=== PATIENT | female | born 1935 | race Caucasian/White ===

== ENCOUNTER 2017-01-03 10:51 | Emergency (ER) | payer OTHER ==
[2017-01-03 11:01] VITALS: RESP 18
--- NOTE | 2017-01-03 11:11 | EDPHY ---
HPI/HX/ROS/PE/MDM - Data Points Imaging: Discussed imaging studies w/ inbound call center representative Radiologist, I viewed and interpreted images myself <Vladimir Butler A - Last Filed: 01/03/17 16:43> <Shahzad Vincent - Last Filed: 01/06/17 06:55> Narrative: CHIEF COMPLAINT: Numbness in her left leg HPI: The patient is a 81 y/o female complaining of numbness in her left leg. She felt normal when she woke up this morning but around 9:15 AM, 2 hours ago, she began experiencing numbness in her left leg. The numbness makes walking difficult. She initially thought it was just "asleep" but the feeling did not dissipate. The numbness in on the lateral aspect of the left leg and foot. The medial aspect of her calf and foot are normal. She has associated back pain and left buttock pain which has been on and off. She denies visual changes, headache , numbness in her arms or face, or any other associated symptoms. REVIEW OF SYSTEMS: Aside from elements discussed in the HPI, a comprehensive 10-point review of systems was reviewed and is negative. PMH: TIA from statins 1 year ago, cardiac stents SOCIAL HISTORY: Lives in [place], mother, employed PHYSICAL EXAM: General:Patient is alert, in no acute distress. ENT:Eyes are normal to inspection. ENT inspection normal. Neck: Normal inspection. Full range of motion. Respiratory:No respiratory distress. Breath sounds normal bilaterally. Cardiovascular: Regular rate and rhythm. Strong peripheral pulses. Normal cap refill. Abdomen:The abdomen is nontender to palpation. There are no peritoneal signs. There are normal bowel sounds. Back: Normal to inspection. No tenderness to palpation. Pt points to area near sciatic notch of left buttock as site of pain. Skin: Normal color. No rash. Warm and dry. Extremities: Normal appearance. Full range of motion. Neuro: Oriented x3. Normal motor function. Normal sensory function. LLE:5/5 strength DF/PF, knee flexion and extension. Abnormal gait - unclear if secondary to pain or weakness. No truncal ataxia noted. (Shahzad Vincent) ED Course: MRI Lumbar Spine: Multilevel degenerative disk disease with severe central canal stenosis at L1-L2, L2-L3 and L3-L4 is described above, worst on the right at L1-L2. MRI Brain: negative. Discussed results and follow up recommendations with the patient. She would prefer to follow up with neurosurgery as an outpatient. She will be discharged with scripts for Boston and Medrol with referral to [facility]. Return precautions discussed. She is comfortable with this plan. 1642: Consulted with [facility] physician. They will call her and arrange follow up. (Vladimir Butler) Study: CT of the head Indication: Left leg numbness Results: CT scan of the head was obtained. The results of the study are: Negative The study was read by the radiologist, Dr. Silver. I viewed the images myself on the PACS system. I had an extensive discussion with patient and her partner regarding possible workup - they are comfortable with plan of MRI brain and L-spine. I have signed the patient out to Dr. Butler at 2:45pm pending results of these studies. I think CVA is unlikely given isolated foot and lower leg symptoms and likelihood of peripheral nerve issue. If CVA, patient would not be a candidate for tPA given improvement in symptoms while in ED. (Shahzad Vincent) MDM: This patient presents with left lower leg weakness, numbness and abnormal gait. This seems most consistent with sciatica or other nerve compression issue given isolation to leg, but given patient's history of TIA and acute onset symptoms, I think CVA in differential, which prompted CTH and MRI. (Shahzad Vincent) - Data Points Imaging Results: Imaging Impressions Head CT 01/03/17 11:20 Impression: Negative. No acute intracranial hemorrhage or evidence of ischemia. Findings discussed with Emergency Department physician, Shahzad Vincent MD, on 01/03/2017, 11:50. Brain MRI 01/03/17 12:22 Impression:Normal for age. Lumbar Spine MRI 01/03/17 12:22 Impression: 1. Large left upper renal cystic lesion. Correlation with ultrasound is recommended since the entirety of this lesion is not included on this study. 2. Multilevel degenerative disk disease with severe central canal stenosis at L1 -L2, L2-L3 and L3-L4 is described above, worst on the right at L1-L2. Results called and discussed with Vladimir Butler MD, at 01/03/2017 16:02 Laboratory Results: Laboratory Results 01/03/17 11:25 01/03/17 11:25 01/03/17 01/03/17 11:25 11:25 WBC 6.42 10^3/uL 10^3/uL (3.80-9.50) RBC 4.87 10^6/uL 10^6/uL (4.18-5.33) Hgb 15.7 g/dL g/dL (12.6-16.3) Hct 44.5 % % (38.0-47.0) MCV 91.4 fL fL (81.5-99.8) MCH 32.2 pg pg (27.9-34.1) MCHC 35.3 g/dL g/dL (32.4-36.7) RDW 14.2 % % (11.5-15.2) Plt Count 165 10^3/uL 10^3/uL (150-400) MPV 9.6 fL fL (8.7-11.7) Neut % (Auto) 52.5 % % (39.3-74.2) Lymph % (Auto) 34.6 % % (15.0-45.0) Stokes % (Auto) 8.1 % % (4.5-13.0) Eos % (Auto) 3.7 % % (0.6-7.6) Baso % (Auto) 0.9 % % (0.3-1.7) Nucleat RBC Rel Count 0.0 % % (0.0-0.2) Absolute Neuts (auto) 3.37 10^3/uL 10^3/uL (1.70-6.50) Absolute Lymphs (auto) 2.22 10^3/uL 10^3/uL (1.00-3.00) Absolute Monos (auto) 0.52 10^3/uL 10^3/uL (0.30-0.80) Absolute Eos (auto) 0.24 10^3/uL 10^3/uL (0.03-0.40) Absolute Basos (auto) 0.06 10^3/uL 10^3/uL (0.02-0.10) Absolute Nucleated RBC 0.00 10^3/uL 10^3/uL (0-0.01) Immature Gran % 0.2 % % (0.0-1.1) Immature Gran # 0.01 10^3/uL 10^3/uL (0.00-0.10) Sodium 139 mEq/L mEq/L (134-144) Potassium 3.9 mEq/L mEq/L (3.5-5.2) Chloride 109 mEq/L mEq/L (97-110) Carbon Dioxide 18 mEq/l L mEq/l (22-31) Anion Gap 12 mEq/L mEq/L (8-16) BUN 17 mg/dL mg/dL (7-23) Creatinine 0.7 mg/dL mg/dL (0.6-1.0) Estimated GFR > 60 Glucose 87 mg/dL mg/dL (70-100) Calcium 9.7 mg/dL mg/dL (8.5-10.4) General <Vladimir Butler - Last Filed: 01/03/17 16:43> <Shahzad Vincent - Last Filed: 01/06/17 06:55> Time Seen by Provider: 01/03/17 11:10 Initial Vital Signs: Initial Vital Signs Temperature (C) 36.6 C 01/03/17 10:55 Heart Rate 87 01/03/17 10:55 Respiratory Rate 18 01/03/17 10:55 Blood Pressure 155/76 H 01/03/17 10:55 O2 Sat (%) 96 01/03/17 10:55 O2 Delivery Mode Room Air Allergies/Adverse Reactions: [id number] Reductase Inhibitor Allergy (Verified 01/04/17 16:11) Loss of consciousness Home Medications: Medication Instructions Recorded Levothyroxine [Synthroid 150 mcg 150 mcg PO DAILY06 03/24/15 (*)] Lisinopril/Hctz 20/12.5MG 1 ea PO DAILY 03/24/15 [Zestoretic/Prinzide 20/12.5MG (*)] Metoprolol Tartrate [Lopressor 25 12.5 mg PO BID 03/24/15 mg (*)] Hydrocodone/APAP 5/325 [[place] 1 - 2 each PO Q4-6PRN PRN #20 tab 01/03/17 5/325] methylPREDNISolone [Medrol Dose 1 each PO AD #1 ea 01/03/17 El] Dry Relief Eye Drops 1 drop EACHEYE DAILY PRN 01/04/17 Departure <Vladimir Butler - Last Filed: 01/03/17 16:43> <Shahzad Vincent - Last Filed: 01/06/17 06:55> - Departure Disposition: Home, Routine, Self-Care Clinical Impression: Degenerative disc disease, lumbar, Central stenosis of spinal canal Condition: Good Instructions: Degenerative Disc Disease (ED) Additional Instructions: 1. Follow up with [facility]surgery as soon as possible. I recommend calling first thing tomorrow morning to make an appointment. Bring discs of your MRIs with you to that visit. 2. Use ibuprofen as directed on the packaging as needed for pain and inflammation. 3. Take Boston as prescribed when needed for severe pain. This medication contains Tylenol (acetaminophen), so you should not use additional Tylenol while using it. This medication can make you drowsy. Do not drive while using it. 4. Take Medrol dose pack as prescribed. 5. Return to the ED for leg weakness, incontinence, numbness around your genitals, or other worsening of condition. Referrals: [facility] [Other] - As per Instructions [facility] [Provider Group] - As per Instructions Prescriptions: Hydrocodone/APAP 5/325 [[place] 5/325] 1 - 2 each PO Q4-6PRN PRN #20 tab PRN Reason: Pain, Moderate methylPREDNISolone [Medrol Dose El] 1 each PO AD #1 ea Report Scribed for: Shahzad Vincent Report Scribed by: Leticia Thomson Date of Report: 01/03/17 Time of Report: 11:11 Physician Review and Approval Statement: Portions of this note were transcribed by an ED scribe. I personally performed the history, physical exam, and medical decision making; and confirm the accuracy of the information in the transcribed note. <Shahzad Vincent - Last Filed: 01/06/17 06:55>
[2017-01-03 11:33] LABS: % IMMATURE GRANULYOCYTES 0.2 % (0.0-1.1); ABSOLUTE IMMATURE GRANULOCYTES 0.01 10^3/uL (0.00-0.10); ADD DIFF? NO; ADD MORPH? NO; ADD SCAN? NO; ATYPICAL LYMPHOCYTE FLAG 0 (0-99); FRAGMENT RBC FLAG 0 (0-99); HEMATOCRIT 44.5 % (38.0-47.0); HEMOGLOBIN 15.7 g/dL (12.6-16.3); LEFT SHIFT FLG 0 (0-99); LIPEMIA HEMOLYSIS FLAG 90 (0-99); MEAN CELL HEMOGLOBIN 32.2 pg (27.9-34.1); MEAN CELL HEMOGLOBIN CONCENTR. 35.3 g/dL (32.4-36.7); MEAN CELL VOLUME 91.4 fL (81.5-99.8); MEAN PLATELET VOLUME 9.6 fL (8.7-11.7); PLATELET CLUMPS FLAG 20 (0-99); PLATELET COUNT 165 10^3/uL (150-400); RED BLOOD CELL COUNT 4.87 10^6/uL (4.18-5.33); RED CELL DISTRIBUTION WIDTH 14.2 % (11.5-15.2)
[2017-01-03 11:57] LABS: ANION GAP 12 mEq/L (8-16); CALCIUM 9.7 mg/dL (8.5-10.4); CARBON DIOXIDE 18 mEq/l (22-31); CHLORIDE 109 mEq/L (97-110); CREATININE 0.7 mg/dL (0.6-1.0); GLOMERULAR FILTRATION RATE > 60; GLUCOSE 87 mg/dL (70-100); POTASSIUM 3.9 mEq/L (3.5-5.2); SODIUM 139 mEq/L (134-144)
[2017-01-03 15:53] VITALS: BP 179/85; PULSE 51; TEMP 98.4; O2SAT 93
== END 2017-01-03 17:14 | disposition home or self-care (01) ==
DX: M51.36 Other intervertebral disc degeneration, lumbar region (principal); M48.061 Spinal stenosis, lumbar region without neurogenic claudication; Z86.73 Personal history of transient ischemic attack (TIA), and cerebral infarction without residual deficits

== ENCOUNTER 2017-01-04 06:26 | Inpatient (IN) | payer OTHER ==
--- NOTE | 2017-01-04 06:53 | EDPHY ---
H & P Time Seen by Provider: 01/04/17 06:36 HPI/ROS: CHIEF COMPLAINT: Left leg numbness HISTORY OF PRESENT ILLNESS: Patient was here in our emergency department yesterday with left hip discomfort and left foot numbness. She had negative MRI of her brain and MRI of her lumbar spine which showed multilevel severe central canal stenosis. She was discharged on Medrol Dosepak. She returns because at 1:11 a.m. and again at 3:00 a.m. she had urinary incontinence. Yesterday the numbness spread from her left foot all the way up into her left thigh and then this morning after her 2nd episode of incontinence she noticed she also had numbness in her left groin and her vaginal area. Patient feels subjectively weak but is still able to walk with a cane. She denies other neurologic symptoms. Her symptoms of numbness are moderate currently. Timing as above. Not better or worse with anything. REVIEW OF SYSTEMS: Eye: no change in vision ENT: no sore throat Cardiac: no chest pain or syncope Pulmonary: no cough or SOB Abdomen: no vomiting, diarrhea, abdominal pain Musculoskeletal: HPI Skin: no rash Neuro: HPI Constitutional: no fever : No dysuria, as above A comprehensive 10 point review of systems is otherwise negative aside from elements mentioned in the history of present illness. PAST MEDICAL HISTORY: Coronary disease with stenting x2 Social history: Here with her partner, Jt patient General Appearance: Alert and conversant, cooperative. Eyes: No scleral icterus. ENT, Mouth: Normal mucous membranes. Respiratory: Normal respiratory effort, breath sounds equal, lungs are clear to auscultation. Cardiovascular: Regular rate and rhythm. Gastrointestinal: Abdomen is soft and non tender. Neurological: Alert and oriented x3. Normally conversant. Patient has slight weakness of left great toe extension, patellar reflexes 2+ symmetric. She has subjective decreased sensation on the outside of her left foot and the outside of her left thigh. Normal strength and knee flexion extension and hip flexion extension. Normal plantar flexion of the foot. Toes downgoing bilaterally. Skin: Warm and dry, no rashes. Musculoskeletal: No spinal tenderness. Psychiatric: Not agitated. Emergency Department course/MDM: message for Jt CRAWFORD at 0650. Concern exists for spinal nerve root compression or cauda equina syndrome, plan for neurosurgical consultation. Discussed with YVETTE Ross with tJ [id number], ok to see [facility] neurosurgery, no transfer. 701am discussed with Dr. Finnegan neurosurgery to see in ED. 804: Admit Neurosurgery per BUS STARTER Sheila. Smoking Status: Never smoked Constitutional: Initial Vital Signs Temperature (C) 37.0 C 01/04/17 06:29 Heart Rate 67 01/04/17 06:29 Respiratory Rate 18 01/04/17 06:29 Blood Pressure 150/79 H 01/04/17 06:29 O2 Sat (%) 96 01/04/17 06:29 O2 Delivery Mode Room Air Allergies/Adverse Reactions: No Known Allergies Allergy (Verified 01/04/17 06:34) Home Medications: Medication Instructions Recorded Levothyroxine 03/24/15 Lisinopril 03/24/15 Metoprolol Succinate 03/24/15 Hydrocodone/APAP 5/325 [[place] 1 - 2 each PO Q4-6PRN PRN #20 tab 01/03/17 5/325] methylPREDNISolone [Medrol Dose 1 each PO AD #1 ea 01/03/17 El] Medical Decision Making Differential Diagnosis: Differential considered including but not limited to lumbar radiculopathy, spinal stenosis, cauda equina syndrome, ischemic stroke, myelitis. Departure - Departure Disposition: [facility] Inpatient Acute Clinical Impression: Lumbar radiculopathy, acute Condition: Good Referrals: [facility] [Other] - As per Instructions
[2017-01-04] MEDS ORDERED: ONDANSETRON 4 MG/2 ML VIAL IVP PRN ×2 (07:53→17:51)
[2017-01-04] MEDS ORDERED: ONDANSETRON DISINTEGRATING 4 MG TAB PO PRN ×2 (07:53→15:09)
[2017-01-04] MEDS ORDERED: ceFAZolin 2 GM/SWFI 2 GM/20 ML SYR IVP ONE (07:57)
[2017-01-04] MEDS ORDERED: NS 1,000 ML IV SCH (08:00)
[2017-01-04 08:26] LABS: HEMATOCRIT 43.2 % (38.0-47.0); HEMOGLOBIN 15.3 g/dL (12.6-16.3); MEAN CELL HEMOGLOBIN 32.6 pg (27.9-34.1); MEAN CELL HEMOGLOBIN CONCENTR. 35.4 g/dL (32.4-36.7); MEAN CELL VOLUME 92.1 fL (81.5-99.8); RED BLOOD CELL COUNT 4.69 10^6/uL (4.18-5.33); RED CELL DISTRIBUTION WIDTH 14.3 % (11.5-15.2)
[2017-01-04 08:36] LABS: INR 0.99 (0.83-1.16)
[2017-01-04 08:37] LABS: APTT 25.6 SEC (23.0-38.0)
[2017-01-04 08:40] LABS: ALANINE AMINOTRANSFERASE 33 IU/L (9-52); ALBUMIN 4.2 g/dL (3.5-5.0); ALKALINE PHOSPHATASE 52 IU/L (38-126); ANION GAP 13 mEq/L (8-16); ASPARTATE AMINOTRANSFERASE 23 IU/L (14-46); BILIRUBIN,TOTAL 0.6 mg/dL (0.1-1.4); CALCIUM 9.7 mg/dL (8.5-10.4); CARBON DIOXIDE 23 mEq/l (22-31); CHLORIDE 108 mEq/L (97-110); CREATININE 0.8 mg/dL (0.6-1.0); GLOMERULAR FILTRATION RATE > 60; GLUCOSE 97 mg/dL (70-100); POTASSIUM 4.1 mEq/L (3.5-5.2); SODIUM 144 mEq/L (134-144); TOTAL PROTEIN 6.8 g/dL (6.3-8.2)
--- NOTE | 2017-01-04 09:58 | NEUSURGPN ---
Assessment/Plan: 72 yr old with acute onset of saddle anesthesia and urinary incontinence, lumbar stenosis Plan -Please see full dictated H&P when available -Dr Finnegan planning to take to OR this afternoon at 2pm for laminectomy -Keep NPO -Call neurosurgery with any questions/concerns Subjective: Patient with left leg numbness saddle anesthesia Objective: PERRLA EOMI CN 2-12 grossly intact 5/5 BUE, Left TA and EHL 4/5, 5/5 in all other LLE muscle groups Diminished light touch sensation to left lateral foot Neuro Check Frequency: per routine Urinary Catheter in Place: No - Physician Discussed Patient with : [facility] Physical Exam - Vitals, I&O, Labs I and O 01/03/17 01/04/17 01/05/17 05:59 05:59 05:59 Weight 65.771 kg Vital Signs Temp Pulse Resp BP Pulse Ox 36.6 C 55 L 16 164/88 H 93 01/04/17 08:27 01/04/17 09:11 01/04/17 09:11 01/04/17 09:11 01/04/17 09:11 Laboratory Results 01/04/17 08:20 01/04/17 08:20 ICD10 Worksheet Patient Problems: Problems Problem Status Onset Lumbar radiculopathy, acute Acute
[2017-01-04] MEDS ORDERED: CHLORHEXIDINE GLUC HIBICLENS 118 ML BTL TP ONE (11:45)
[2017-01-04] MEDS ORDERED: BUPIVACAINE 0.25% 30 ML SDV ONE (11:46)
[2017-01-04] MEDS ORDERED: THROMBIN (BOVINE) 5,000 UNIT VIAL TP ONE (11:46)
[2017-01-04] MEDS ORDERED: BACITRACIN 50,000 UNITS/10 ML SYR IRR ONE ×2 (11:47→16:35)
--- NOTE | 2017-01-04 13:20 | GHP ---
[f rep st] HISTORY AND PHYSICAL DATE OF ADMISSION: 01/04/2017 CHIEF COMPLAINT: Left leg numbness and urinary incontinence. HISTORY OF PRESENT ILLNESS: The patient is a 81-year-old female who presented to the emergency department yesterday with some pain in her left hip and left foot numbness. She underwent an MRI of her brain, which was negative, and an MRI of her lumbar spine, which showed multilevel severe central canal stenosis. She was discharged home yesterday with a Medrol Dosepak. She presented to the emergency room this morning following 2 bouts of urinary incontinence, 1 being at 1:11 in the morning and again happening around 3:30 a.m. She had the inclination that she needed to go to the bathroom. As soon as she stepped out of her bed, she became incontinent. The patient states she has saddle anesthesia. She denies any other neurological symptoms other than some weakness in her left lower extremity. REVIEW OF SYSTEMS: A 10-point review of systems was performed and negative aside what was mentioned in the HPI. PAST MEDICAL HISTORY: Mild hypertension, thyroid disease. SURGICAL HISTORY: 1. Two sections. 2. Two cardiac stents in 1999 and 2000. FAMILY HISTORY: The patient denies any spinal stenosis in her mother or father. Both parents lived to age 87. Her mother had arthritis. Her dad had type 2 diabetes. SOCIAL HISTORY: The patient drinks 2-3 ounces of alcohol every day. She does not use tobacco products. She does not use illicit drugs. MEDICATIONS: 1. Lisinopril. 2. Metoprolol. 3. Synthroid. 4. Fish oil. 5. Tylenol as needed. ALLERGIES: Statin medications. PHYSICAL EXAMINATION: VITAL SIGNS: Blood pressure is 153/67, heart rate is 52 , respiratory rate is 18, oxygen saturation is 93% on room air, temperature is 36.6 degrees Celsius. HEENT: Head is normocephalic and atraumatic. Pupils are equal, round, and reactive to light. EOMI is intact. Full visual le by confrontation. Ears are patent. Nose is patent. NECK: Soft and supple. Full range of motion of flexion, extension, lateral bearing rotation. RESPIRATORY/CARDIAC: Deferred. ABDOMEN: Soft and nontender. GENITOURINARY/ RECTAL: Deferred. NEUROLOGIC: The patient is awake, alert, and oriented to name, place, location, date, time, and situation. Memory is intact to immediate , past and current events. Speech: No aphasia or dysphonia. Cranial nerves 2- 12 are grossly intact. Motor: The patient has 5/5 strength in all muscle groups in the bilateral upper and lower extremities. Aside from left tibialis anterior and left extensor hallucis longus, weakness rating 4/5. The rest of the muscle groups are 5/5 including deltoids, biceps, triceps, brachioradialis, wrist flexion, extensors, leather polisher, intrinsic fingers, iliopsoas, quadriceps, hamstrings, plantar flexion, dorsiflexion, EHL testing on the right. Sensation is grossly intact to light touch throughout all dermatomal distributions in bilateral lower extremities, aside from decreased light touch sensation in the left lateral foot. The patient had a negative straight leg raise, negative JUAN test. Reflexes is biceps, triceps, brachioradialis, knee jerk, and ankle jerk are 2+ out of 4. Toes are downgoing bilaterally. Prabhjot sign is negative. Babinski is negative, and there is no evidence of clonus. DIAGNOSTIC TESTING: MRI of the lumbar spine without contrast performed on January 03, 2017, demonstrates multilevel degenerative disk disease with severe central canal stenosis at L1-2, L2-3, and L3-4, with the worst level being at 1-2. Patient also has a very large left upper renal cystic lesion, in which I recommend she follow up with her primary care for full evaluation. CT of the brain without IV contrast performed on January 03, 2017, was negative. MRI of the brain without IV contrast performed on January 03, 2017, was normal for her age. X-rays of the lumbar spine performed with anterior-posterior and flexion- extension views demonstrate multilevel degenerative disk disease with no identified instability. She does have a mild retrolisthesis at L1-2 and a mild spondylolisthesis at L4-5, again, without any instability. DISCUSSION AND DECISION-MAKING: The patient is a 81-year-old female who presented to the emergency room yesterday with pain and numbness in her left lower extremity. She was sent home with a Medrol Dosepak and returned early this morning to the emergency room after 2 occurrences of urinary incontinence during the night. MRI of the lumbar spine demonstrates severe central canal stenosis at L1-2, L2-3, and L3-4. The patient has some mild weakness in her left tibialis anterior and left extensor hallucis longus, as well as saddle anesthesia and numbness in her left foot. MRI of the lumbar spine also demonstrates a very large left renal cyst, and I have advised her to follow up with her primary care for further evaluation. Dr. Min met with the patient and discussed her surgical options, including instrumented and noninstrumented surgery to relieve her lumbar stenosis. Dr. Finnegan will be doing surgery later this afternoon. She is scheduled for an L1-2 , L2-3, and L3-4 laminectomy. She understands the risks and the benefits of this surgery and also understands more lumbar surgery may be needed in the future. We will keep the patient n.p.o. and prepare her for surgery this afternoon. I saw and examined the patient in the emergency department this morning at 7:[address] Min saw the patient later this morning in her hospital room. /[id number]/MODL MTDD
[2017-01-04] MEDS ORDERED: LR 1,000 ML IV ONE (13:21)
[2017-01-04] MEDS ORDERED: LIDOCAINE 1% 2 ML INJ ID PRN (13:21)
[2017-01-04] MEDS ORDERED: ceFAZolin 2 GM/SWFI 20 ML SYR IVP ONE (13:35)
[2017-01-04] MEDS ORDERED: MIDAZOLAM 2 MG/2 ML VIAL IVP ONE (14:40)
--- NOTE | 2017-01-04 14:42 | PDANEPAE ---
ANE Past Medical History - Cardiovascular History Hx Hypertension: Yes Hx Coronary Artery / Peripheral Vascular Disease: Yes - Pulmonary History Hx Oxygen in Use at Home: No Hx Sleep Apnea: No Sleep Apnea Screening Result - Last Documented: Negative - Endocrine History Hx Diabetes: No ANE Review of Systems Review of Systems: - Exercise capacity Exercise capacity: >=4 METS ANE Patient History - Allergies Allergies/Adverse Reactions: No Known Allergies Allergy (Verified 01/04/17 06:34) - Home Medications Home Medications: Levothyroxine [Synthroid 150 mcg (*)] 150 mcg PO DAILY06 03/24/15 [Last Taken ] Lisinopril/Hctz 20/12.5MG [Zestoretic/Prinzide 20/12.5MG (*)] 1 dose PO BID 10/29 [Last Taken Unknown] Metoprolol Tartrate [Lopressor 25 mg (*)] 12.5 mg PO BID 03/24/15 [Last Taken 21:00] Dry Relief Eye Drops 1 drop EACHEYE DAILY PRN 01/04/17 [Last Taken 01/04/17] - NPO status NPO Since - Liquids (Date): 01/04/17 NPO Since - Liquids (Time): 05:00 - Anes Hx Anes Hx: no prior problems - Smoking Hx Smoking Status: Never smoked ANE Labs/Vital Signs - Labs Result Diagrams: 01/04/17 08:20 01/04/17 08:20 - Vital Signs Blood Pressure: 164/88 Heart Rate: 55 Respiratory Rate: 16 O2 Sat (%): 93 Height: 165.1 cm Weight: 65.771 kg ANE Physical Exam - Airway Neck exam: FROM Mouth exam: normal dental/mouth exam - Pulmonary Pulmonary: no respiratory distress, no rales or rhonchi, clear to auscultation - Cardiovascular Cardiovascular: regular rate and rhythym, no murmur, rub, or gallop - ASA Status ASA Status: III ANE Anesthesia Plan Anesthesia Plan: general endotracheal anesthesia
[2017-01-04] MEDS ORDERED: SUCCINYLCHOLINE CHLORIDE*ANESTHESIA ONLY*200 MG/10 ML SYR IVP ONE (14:47)
[2017-01-04] MEDS ORDERED: PROPOFOL 200 MG/20 ML VIAL ONE (14:47)
[2017-01-04] MEDS ORDERED: ONDANSETRON 4 MG/2 ML VIAL ONE (14:47)
[2017-01-04] MEDS ORDERED: DEXAMETHASONE 4 MG/ML VIAL ONE ×2 (14:47)
[2017-01-04] MEDS ORDERED: BISACODYL 10 MG SUPP PR PRN (15:09)
[2017-01-04] MEDS ORDERED: POLYETHYLENE GLYCOL 3350 17 GM PKT PO PRN (15:09)
[2017-01-04] MEDS ORDERED: diphenhydrAMINE 25 MG CAP PO PRN (15:09)
[2017-01-04] MEDS ORDERED: LACTULOSE 20 GM/30 ML UDCUP PO PRN (15:09)
[2017-01-04] MEDS ORDERED: MAGNESIUM HYDROXIDE 30 ML UDCUP PO PRN (15:09)
[2017-01-04] MEDS ORDERED: [UNRECOGNIZED DRUG - OTHER] EACHEYE PRN (15:13)
[2017-01-04] MEDS ORDERED: SURGIFLO MATRIX KIT WITH THROMBIN TP ONE ×2 (15:20→16:55)
[2017-01-04] MEDS ORDERED: PHENYLEPHRINE HCL 100 MCG/ML SYR ONE (15:28)
[2017-01-04] MEDS ORDERED: DEXMEDETOMIDINE/NS 4MCG/ML 50 ML BTL IV ONE (17:00)
[2017-01-04] MEDS ORDERED: LR 500 ML IV PRN (17:51)
[2017-01-04] MEDS ORDERED: fentaNYL 100 MCG/2 ML INJ IVP PRN (17:51)
[2017-01-04] MEDS ORDERED: ACETAMINOPHEN 500 MG TAB PO PRN (17:51)
[2017-01-04] MEDS ORDERED: PROMETHAZINE HCL 25 MG/ML INJ IVP PRN (17:51)
[2017-01-04] MEDS ORDERED: OXYCODONE/APAP 5/325 TAB PO PRN (17:51)
[2017-01-04] MEDS ORDERED: NALOXONE HCL 0.4 MG/ML INJ IVP PRN (17:51)
[2017-01-04] MEDS ORDERED: KETOROLAC 15 MG/1 ML SDV IVP PRN (17:58)
--- NOTE | 2017-01-04 18:30 | POSTOPPROG ---
Post Op Note Date of Operation: 01/04/17 Surgeon: Srinivas Finnegan Firmware Engineer: Natalee Sosa NP Anesthesiologist: Ness Anesthesia: GET(General Endotracheal) Pre-op Diagnosis: severe lumbar stenosis L1-3 with cauda equina syndrome Post-op Diagnosis: same Indication: cauda equina syndrome Procedure: L1-3 laminectomy Findings: severe lumbar stenosis, CSF leak Inf/Abcess present in the surg proc area at time of surgery?: No EBL: 100-500 Complications: CSF leak (repaired)
--- NOTE | 2017-01-04 18:33 | SOAPPROG ---
SOAP Progress Note Assessment/Plan: Assessment: POD#0 s/p L1-3 laminectomy for cauda equina syndrome complicated by CSF leak (repaired) Plan: flat bedrest x 48 hours pain control lovenox post op day 1 follow exam (currently improved) 01/04/17 18:30 Subjective: no complaints, sensation improved Objective: Vital Signs Temp Pulse Resp BP Pulse Ox 36.6 C 55 L 16 164/88 H 93 01/04/17 13:38 01/04/17 14:41 01/04/17 14:41 01/04/17 14:41 01/04/17 14:41 Laboratory Results 01/04/17 08:20 01/04/17 08:20 PT 13.0 SEC (12.0-15.0) 01/04/17 08:20 INR 0.99 (0.83-1.16) 01/04/17 08:20 AAOx3, speech clear and fluent b/l LE HF, KF, KE, PF, DF 5/5 (left dorsiflexion improved from preop) does not note any numbness in LE which she had preop dressings c/d/i - Pending Discharge Pending Discharge Within 24 Hours: No Pending Discharge Within 48 Hours: No ICD10 Worksheet Patient Problems: Problems Problem Status Onset Lumbar radiculopathy, acute Acute
--- NOTE | 2017-01-04 18:57 | GOP ---
[f rep st] OPERATIVE REPORT DATE OF OPERATION: 01/04/2017 SURGEON: Srinivas Finnegan MD DATA ANALYTICS ARCHITECT: Danielle Sosa NP PREOPERATIVE DIAGNOSIS: Severe lumbar stenosis at L1-2, L2-3, L3-4 with cauda equina syndrome. POSTOPERATIVE DIAGNOSIS: Severe lumbar stenosis at L1-2, L2-3, L3-4 with cauda equina syndrome. PROCEDURE PERFORMED: 1. Bilateral laminectomies at L1, L2, L3. 2. Medial facetectomies of L1, L2, L3. 3. Foraminotomies at L1-2, L2-3, L3-4. 4. Use of the operative microscope. 5. Repair of dural tear. 6. Intraoperative neurophysiological monitoring including somatosensory-evoked potentials and EMG. FINDINGS: DESCRIPTION OF PROCEDURE: BRIEF CLINICAL HISTORY: The patient is a 81-year-old woman who presents with about 24-36 hours of wo rsening left leg numbness that has spread into the saddle area. She had 3 episodes of incontinence o ana last evening. She presented to the hospital today, and an MRI revealed severe lumbar stenosis, L 1-2, L2-3, L3-4. We discussed the situation and recommended laminectomy given the symptoms of a caud a equina syndrome. We brought her urgently to the operating room this afternoon. PROCEDURE: Informed consent was obtained from the patient, the patient was brought to the operating room, and a formal time-out was performed, identifying the patient by name, medical record number, an d date of . Preoperative antibiotics were given. Endotracheal tube was placed and general endo tracheal anesthesia was smoothly induced. All appropriate leads were placed for neurophysiologic mon itoring, including somatosensory-evoked potentials and EMG. The patient was then turned into the pro ne position on the Michael frame with the lumbar spine in flexion. A spinal needle was placed and lat eral radiographs confirmed the appropriate levels for the incision. The lumbar region was then prepp ed and draped in the normal sterile fashion. The skin incision was made using a 10 blade, and the dotson bcutaneous tissues were dissected using monopolar electrocautery. The fascia was opened in the midli ne over the spinous processes, and the paraspinous muscles were taken down from the L1, L2, and L3 la chris. There was extreme facet hypertrophy, and the lamina were somewhat hard to visualize. Markers were placed under the lamina and another lateral radiograph confirmed the appropriate levels. At thi s point, the spinous processes were removed at L1, L2, and L3. The very upper portion of the L1 spin ous process and the lower portion of the L3 spinous process were left intact, with the interspinous l igaments. The high-speed drill was then used to drill troughs over the lateral gutters, leaving more than 3/4 of the pars on either side for stability. As we thinned the bone, yellow ligament was iden tified in the middle over the L2 region. Kerrison punches were then used to remove the yellow ligame nt, and in this region of the maximal stenosis, the ligament, bone, and dura were essentially one. T here was a large dural tear once this ligament was removed and a CSF leak. This was covered with a c ottonoid ramya, and we continued the decompression. The lamina at L1, L2, and L3 were completely rem annette, and lateral recess decompression was performed using Kerrison punches. There was extreme ligam entous hypertrophy at L2-3 and L3-4, which was causing very severe stenosis. The operative microscop e was brought onto the field, and the ligament was removed very carefully using the Kerrison punches. After the decompression was completed, some Surgicel was placed on the lateral gutters. A lateral radiograph was performed, confirming that we had decompressed from above the L1-2 to below the L3-4 d isk space. At this point, a 6-0 Prolene and some 4-0 Nurolon sutures were used to close the dural te ar in a water-tight fashion. This was tested with a Valsalva, and no further leakage of CSF was seen , and this appeared to be a very good closure. The dura was then covered with Surgicel to form a blo od patch over the dura. This was held in place using DuraSeal. At this point, all bleeding was from the muscles was controlled using bipolar electrocautery. The paraspinous muscles were tacked closed using interrupted 0 Vicryl's to close the space, and the deep lumbar fascia was closed in a barbara er-tight fashion. The superficial lumbar fascia was also closed using interrupted 0 Vicryl's, and th e deep dermis was closed using interrupted 2-0 Vicryl's. The skin was closed using a running 3-0 nyl on. Sterile dressings were placed. The patient was then awakened in the operating room, where she w as extubated and transferred to the PACU in stable condition. Other than the CSF leak, there were no operative complications. There were no drains and no specimens. Blood loss was 200 cc. Fluids in and out per the anesthesia record. /[id number]/MODL
[2017-01-04] MEDS: FAMOTIDINE 20 MG TAB PO SCH (20:43)
[2017-01-04] MEDS: SENNOSIDES/DOCUSATE SODIUM TAB PO SCH (20:43)
[2017-01-04] MEDS: METOPROLOL TARTRATE 25 MG TAB PO SCH (20:44)
[2017-01-04] MEDS: DIAZEPAM 5 MG TAB PO PRN (22:11)
[2017-01-04] MEDS: ceFAZolin 2 GM/DEXTROSE 100 ML IV SCH (22:11)
[2017-01-04] MEDS: KETOROLAC 15 MG/1 ML SDV IVP SCH ×2 (22:18→23:49)
[2017-01-05] MEDS: ACETAMINOPHEN 325 MG TAB PO PRN (02:47)
[2017-01-05 04:58] LABS: % IMMATURE GRANULYOCYTES 0.4 % (0.0-1.1); ABSOLUTE IMMATURE GRANULOCYTES 0.03 10^3/uL (0.00-0.10); ADD DIFF? NO; ADD MORPH? NO; ADD SCAN? NO; ATYPICAL LYMPHOCYTE FLAG 0 (0-99); FRAGMENT RBC FLAG 0 (0-99); HEMATOCRIT 36.5 % (38.0-47.0); HEMOGLOBIN 12.4 g/dL (12.6-16.3); LEFT SHIFT FLG 0 (0-99); LIPEMIA HEMOLYSIS FLAG 90 (0-99); MEAN CELL VOLUME 94.1 fL (81.5-99.8); PLATELET CLUMPS FLAG 0 (0-99); PLATELET COUNT 154 10^3/uL (150-400); RED BLOOD CELL COUNT 3.88 10^6/uL (4.18-5.33); RED CELL DISTRIBUTION WIDTH 14.1 % (11.5-15.2)
[2017-01-05 05:24] LABS: ANION GAP 8 mEq/L (8-16); CALCIUM 8.5 mg/dL (8.5-10.4); CARBON DIOXIDE 22 mEq/l (22-31); CHLORIDE 111 mEq/L (97-110); CREATININE 0.8 mg/dL (0.6-1.0); GLOMERULAR FILTRATION RATE > 60; GLUCOSE 82 mg/dL (70-100); POTASSIUM 4.2 mEq/L (3.5-5.2); SODIUM 141 mEq/L (134-144)
[2017-01-05] MEDS: LEVOTHYROXINE 150 MCG TAB PO SCH (05:58)
[2017-01-05] MEDS: KETOROLAC 15 MG/1 ML SDV IVP SCH ×4 (05:58→22:54)
[2017-01-05] MEDS: ceFAZolin 2 GM/DEXTROSE 100 ML IV SCH (05:59)
[2017-01-05] MEDS: SENNOSIDES/DOCUSATE SODIUM TAB PO SCH ×2 (08:55→20:52)
[2017-01-05] MEDS: METOPROLOL TARTRATE 25 MG TAB PO SCH ×2 (08:55→20:55)
[2017-01-05] MEDS: oxyCODONE IR 5 MG TAB PO PRN ×3 (08:56→20:52)
[2017-01-05] MEDS: FAMOTIDINE 20 MG TAB PO SCH ×2 (08:56→20:52)
[2017-01-05] MEDS: LISINOPRIL/HCTZ 20/12.5MG 1 EA TAB PO SCH (08:56)
--- NOTE | 2017-01-05 09:53 | NEUSURGPN ---
Date of Surgery: 01/04/17 Post Op Day: 1 Assessment/Plan: 81 yr old with acute onset of saddle anesthesia and urinary incontinence, lumbar stenosis,s/p L1-2,L2-3,L3-4 laminectomy with intraop dura leak which was repaired Plan: -PT/OT to eval -Keep HOB flat until Monday -Advance diet as tolerated -Start lovenox today for DVT propholaxis -Call neurosurgery with any questions/concerns Subjective: Left leg numbness improving, expected incisional pain Objective: AxO x3 PERRLA EOMI 5/5 BUE Left TA 4/5, left ehl 5- Dressing CDI Neuro Check Frequency: per routine Urinary Catheter in Place: Yes Urinary Catheter Indication: Other (Use Comment) (bedrest) Catheter Insertion Date: 01/04/17 - Physician Discussed Patient with : [facility] Physical Exam - Vitals, I&O, Labs I and O 01/04/17 01/05/17 01/06/17 05:59 05:59 05:59 Intake Total 2263 350 Output Total 220 Balance 2043 350 Weight 65.771 kg Intake: Oral (ml) 50 350 IV Intake (ml) 1350 IV Infused (ml) 863 Ns 1,000 ml @ 75 mls/hr 643 IV CONT EMMY Rx#: [id number] ceFAZolin 2 GM/DEXTROSE 220 100 ml @ 200 mls/hr IV Q8HRS EMMY Rx#:[id number] Output: Urine (ml) 70 Catheter 70 Estimated Blood Loss (ml) 150 Vital Signs Temp Pulse Resp BP Pulse Ox 36.8 C 65 16 122/60 H 97 01/05/17 08:00 01/05/17 08:55 01/05/17 08:00 01/05/17 08:56 01/05/17 08:00 Laboratory Results 01/05/17 04:38 01/05/17 04:38 ICD10 Worksheet Patient Problems: Problems Problem Status Onset Lumbar radiculopathy, acute Acute
--- NOTE | 2017-01-05 13:47 | ASMTCMCOM ---
CM Note CM Note Notes: Pt s/p L1-2, L2-3, L3-4 lami for lumbar stenosis. PT/OT evals pending - pt is on bed rest until 20:30 01/06. CM will follow for any d/c needs. Date Signed: 01/05/2017 01:46 PM Electronically Signed By:MIRYAM Pierce
[2017-01-05] MEDS: DIAZEPAM 5 MG TAB PO PRN (15:49)
[2017-01-06] MEDS: DIAZEPAM 5 MG TAB PO PRN ×2 (03:39→16:21)
[2017-01-06] MEDS: oxyCODONE IR 5 MG TAB PO PRN ×3 (03:39→22:29)
[2017-01-06] MEDS: LEVOTHYROXINE 150 MCG TAB PO SCH (05:11)
[2017-01-06] MEDS: KETOROLAC 15 MG/1 ML SDV IVP SCH ×3 (05:11→18:07)
[2017-01-06] MEDS: LISINOPRIL/HCTZ 20/12.5MG 1 EA TAB PO SCH (08:52)
[2017-01-06] MEDS: FAMOTIDINE 20 MG TAB PO SCH ×2 (08:56→20:31)
[2017-01-06] MEDS: SENNOSIDES/DOCUSATE SODIUM TAB PO SCH ×2 (08:56→20:30)
[2017-01-06] MEDS: ACETAMINOPHEN 325 MG TAB PO PRN ×2 (08:57→16:20)
[2017-01-06] MEDS: ENOXAPARIN 40 MG/0.4 ML SYR SC SCH (09:03)
[2017-01-06] MEDS: METOPROLOL TARTRATE 25 MG TAB PO SCH ×2 (09:03→20:31)
--- NOTE | 2017-01-06 10:47 | NEUSURGPN ---
Date of Surgery: 01/04/17 Post Op Day: 2 Assessment/Plan: 81 yr old with acute onset of saddle anesthesia and urinary incontinence, lumbar stenosis,s/p L1-2,L2-3,L3-4 laminectomy with intraop dura leak which was repaired Plan: -PT/OT to eval-plan to ambulate 01/07 late morning -Keep HOB flat until Monday -Will raise HOB 10 degrees every hour starting at 0600 tomorrow 01/07 -DC rodriguez 01/07 am -Advance diet as tolerated -Start lovenox today for DVT propholaxis -Discussed patient with Dr Finnegan -Call neurosurgery with any questions/concerns Subjective: Doing well, laying with hob flat Objective: AxO x3 PERRLA EOMI 5/5 BUE Left TA 4/5, left ehl 5- Dressing CDI Neuro Check Frequency: per routine Urinary Catheter in Place: Yes Urinary Catheter Indication: Other (Use Comment) (bedrest) Catheter Insertion Date: 01/04/17 - Physician Discussed Patient with : [facility] Physical Exam - Vitals, I&O, Labs I and O 01/05/17 01/06/17 01/07/17 05:59 05:59 05:59 Intake Total 2263 750 Output Total 220 900 Balance 2043 -150 Weight 65.771 kg Intake: Oral (ml) 50 750 IV Intake (ml) 1350 IV Infused (ml) 863 Ns 1,000 ml @ 75 mls/hr 643 IV CONT EMMY Rx#: [id number] ceFAZolin 2 GM/DEXTROSE 220 100 ml @ 200 mls/hr IV Q8HRS EMMY Rx#:[id number] Output: Urine (ml) 70 900 Catheter 70 900 Estimated Blood Loss (ml) 150 Vital Signs Temp Pulse Resp BP Pulse Ox 36.3 C 55 L 16 114/63 95 01/06/17 08:00 01/06/17 09:03 01/06/17 08:00 01/06/17 09:03 01/06/17 08:00 Laboratory Results 01/05/17 04:38 01/05/17 04:38 ICD10 Worksheet Patient Problems: Problems Problem Status Onset Lumbar radiculopathy, acute Acute
--- NOTE | 2017-01-06 23:43 | POSTANESTH ---
Post Anesthetic Evaluation Cardiovascular Status: Normal, Stable, Similar to Pre-Op Cond Respiratory Status: Normal, Stable, Similar to Pre-op Cond. Level of Consciousness/Mental Status: Can Participate in Eval, Mildly Sleepy, Arousable Pain Control: Adequate, Prn Tx Ordered Nausea/Vomiting Control: Adequate, Prn Tx Ordered Complications Possibly Related to Anesthesia: None Noted
[2017-01-07] MEDS: KETOROLAC 15 MG/1 ML SDV IVP SCH ×3 (00:08→13:23)
[2017-01-07] MEDS: oxyCODONE IR 5 MG TAB PO PRN (04:43)
[2017-01-07] MEDS: LEVOTHYROXINE 150 MCG TAB PO SCH (05:54)
[2017-01-07] MEDS: FAMOTIDINE 20 MG TAB PO SCH ×2 (08:14→20:17)
[2017-01-07] MEDS: SENNOSIDES/DOCUSATE SODIUM TAB PO SCH ×2 (08:14→20:16)
[2017-01-07] MEDS: ENOXAPARIN 40 MG/0.4 ML SYR SC SCH (08:14)
[2017-01-07] MEDS: METOPROLOL TARTRATE 25 MG TAB PO SCH ×2 (08:20→20:16)
[2017-01-07] MEDS ORDERED: ENOXAPARIN 40 MG/0.4 ML SYR SC SCH (09:00)
--- NOTE | 2017-01-07 09:28 | NEUSURGPN ---
Date of Surgery: 01/04/17 Post Op Day: 3 Assessment/Plan: 81 yr old with acute onset of saddle anesthesia and urinary incontinence, lumbar stenosis,s/p L1-2,L2-3,L3-4 laminectomy with intraop dura leak which was repaired Plan: -PT/OT to eval-plan to ambulate this morning -HOB at 30 degrees, denies any headache, will continue to raise and plan to ambulate later this morning -Melgoza removed, patient has not yet voided -Dressing removed, ok to shower -Pending PT/OT eval, patient may dc home this afternoon if continues to remain free of headache -Discussed patient with Dr Finnegan -Call neurosurgery with any questions/concerns Subjective: Patient feels her pain is well controlled with current medication regimen Objective: AxO x3 PERRLA EOMI 5/5 BUE Left TA 4/5, left ehl 5- Dressing removed, incision CDI Neuro Check Frequency: per routine Urinary Catheter in Place: No Catheter Insertion Date: 01/04/17 - Physician Discussed Patient with Dr.: Finnegan Neurosurgery Physical Exam - Vitals, I&O, Labs I and O 01/06/17 01/07/17 01/08/17 05:59 05:59 05:59 Intake Total 750 1350 Output Total 900 950 Balance -150 400 Intake: Oral (ml) 750 1350 Output: Urine (ml) 900 950 Catheter 900 950 Other: Intake Quantity Yes Sufficient Vital Signs Temp Pulse Resp BP Pulse Ox 37.1 C 74 16 159/83 H 92 01/07/17 07:16 01/07/17 08:20 01/07/17 07:16 01/07/17 08:20 01/07/17 07:16 Laboratory Results 01/05/17 04:38 01/05/17 04:38 ICD10 Worksheet Patient Problems: Problems Problem Status Onset Lumbar radiculopathy, acute Acute
[2017-01-07] MEDS: LISINOPRIL/HCTZ 20/12.5MG 1 EA TAB PO SCH (10:50)
--- NOTE | 2017-01-07 14:48 | ASMTCMCOM ---
CM Note CM Note Notes: OT recommending HC. Met with pt who declined. Her partner is a chiropractor who can help with cares. No other needs identified. Date Signed: 01/07/2017 02:47 PM Electronically Signed By:Katja Haddad LCSW
[2017-01-07] MEDS: KETOROLAC 15 MG/1 ML SDV IVP PRN ×2 (15:13→23:59)
[2017-01-07 23:59] VITALS: RESP 16
[2017-01-08] MEDS: LEVOTHYROXINE 150 MCG TAB PO SCH (05:56)
[2017-01-08 07:37] VITALS: TEMP 97.6; O2SAT 92
[2017-01-08] MEDS: METOPROLOL TARTRATE 25 MG TAB PO SCH (09:10)
[2017-01-08] MEDS: FAMOTIDINE 20 MG TAB PO SCH (09:10)
[2017-01-08] MEDS: ENOXAPARIN 40 MG/0.4 ML SYR SC SCH (09:10)
[2017-01-08] MEDS: SENNOSIDES/DOCUSATE SODIUM TAB PO SCH (09:11)
[2017-01-08] MEDS: LISINOPRIL/HCTZ 20/12.5MG 1 EA TAB PO SCH (09:11)
[2017-01-08 09:15] VITALS: BP 139/81; PULSE 88
[2017-01-08] MEDS: oxyCODONE IR 5 MG TAB PO PRN (09:18)
--- NOTE | 2017-01-08 10:27 | NEUSURGPN ---
Date of Surgery: 01/04/17 Post Op Day: 4 Assessment/Plan: 81 yr old with acute onset of saddle anesthesia and urinary incontinence, lumbar stenosis,s/p L1-2,L2-3,L3-4 laminectomy with intraop dura leak which was repaired Plan: -PT/OT to eval-plan to ambulate this morning prior to discharge -ok to shower -Patient has improvement in left foot numbness and strength -May dc home, patient has family at home to care for her, requesting walker and possible bedside commode for home -Discussed patient with Dr Finnegan -Call neurosurgery with any questions/concerns Subjective: left foot numbness improved Objective: AxO x3 PERRLA EOMI 5/5 BUE Left TA 5-, left ehl 5- incision CDI Neuro Check Frequency: per routine Urinary Catheter in Place: No Catheter Insertion Date: 01/04/17 - Physician Discussed Patient with Dr.: Finnegan Neurosurgery Physical Exam - Vitals, I&O, Labs I and O 01/07/17 01/08/17 01/09/17 05:59 05:59 05:59 Intake Total 1350 400 Output Total 950 300 Balance 400 100 Intake: Oral (ml) 1350 400 Output: Urine (ml) 950 300 Catheter 950 Toilet 300 Other: Intake Quantity Yes Sufficient Number of Voids Toilet 2 1 Number of Stools Toilet 1 1 Vital Signs Temp Pulse Resp BP Pulse Ox 36.4 C 88 16 139/81 H 92 01/08/17 07:37 01/08/17 09:10 01/08/17 07:37 01/08/17 09:10 01/08/17 07:37 Laboratory Results 01/05/17 04:38 01/05/17 04:38 ICD10 Worksheet Patient Problems: Problems Problem Status Onset Lumbar radiculopathy, acute Acute
--- NOTE | 2017-01-08 10:48 | ASDISCHSUM ---
Discharge Information Plan Status:Home with No Needs Medically Cleared to Leave:01/07/2017 Discharge Date:01/07/2017 CM D/C Disposition:Home, Routine, Self-Care ADT D/C Disposition:Home, Routine, Self-Care Projected Discharge Date:01/07/2017 Transportation at D/C:Family Discharge Delay Reason: Follow-Up Date:01/07/2017 Discharge Slot: Final Diagnosis: Placement Information Patient Contact Information Contact Name:DEIRDREMANDEEPELICEO Relationship:Friend Address:[address] City:[place] Alternate Phone: [facility]/Zip Code:[place] [address] Email: Financial Information Financial Class:Medicare Advantage Plans Primary Plan Desc:[employer] Primary Plan Number:[id number] Secondary Plan Desc: Secondary Plan Number: Assessment Information [facility] CM Progress Note CM Note CM Note Notes: Pt s/p L1-2, L2-3, L3-4 lami for lumbar stenosis. PT/OT evals pending - pt is on bed rest until 20:30 01/06. CM will follow for any d/c needs. Date Signed: 01/05/2017 01:46 PM Electronically Signed By:MIRYAM Pierce [facility] CM Progress Note CM Note CM Note Notes: OT recommending HC. Met with pt who declined. Her partner is a chiropractor who can help with cares. No other needs identified. Date Signed: 01/07/2017 02:47 PM Electronically Signed By:Katja Haddad LCSW Intervention Information
[2017-01-08] MEDS: KETOROLAC 15 MG/1 ML SDV IVP PRN (11:57)
== END 2017-01-08 12:19 | disposition home or self-care (01) | DRG 516 ==
LOC: F3N 08:52
PROVIDERS: ADMIT Neurological Surgery; ATTEND Neurological Surgery
DX: M48.062 Spinal stenosis, lumbar region with neurogenic claudication (principal); G97.41 Accidental puncture or laceration of dura during a procedure; I25.10 Atherosclerotic heart disease of native coronary artery without angina pectoris; I10 Essential (primary) hypertension; E03.9 Hypothyroidism, unspecified; Z95.5 Presence of coronary angioplasty implant and graft
CPT/HCPCS: 97116-GP; 97161-GP; 97166-GO; 97530-GP; J0171; J0330; J0690; J1100; J1650; J1885; J2250; J2370; J2405; J2704